=== PATIENT | female | born 1995 | race Caucasian/White ===

== ENCOUNTER → 2023-06-25 | Outpatient (CLI) | payer OTHER ==
[2023-06-25 15:45] LABS: THYROID STIMULATING HORMONE 62.903 uIU/ML (0.55-4.78)
[2023-06-25 15:48] LABS: FREE T4 0.25 NG/DL (0.89-1.76)
== END ==
LOC: M PLALAB 11:14
PROVIDERS: ATTEND Nurse Practitioner Family
DX: E89.0 Postprocedural hypothyroidism (principal)